=== PATIENT | male | born 1950 | race Caucasian/White ===

== ENCOUNTER → 2017-03-15 | Outpatient (CLI) | payer OTHER | LOC: COL.RAD 08:11 | DX: Z01.818 Encounter for other preprocedural examination (principal); M17.0 Bilateral primary osteoarthritis of knee ==

== ENCOUNTER → 2017-05-16 | Outpatient (CLI) | payer MEDICARE, OTHER | LOC: COL.LAB 10:34 | DX: Z01.812 Encounter for preprocedural laboratory examination (principal); M17.0 Bilateral primary osteoarthritis of knee ==